=== PATIENT | female | born 1985 | race Caucasian/White ===

== ENCOUNTER 2021-06-28 23:05 | Emergency (ER) | payer OTHER ==
[2021-06-28] MEDS ORDERED: Acetaminophen/HYDROcodone 325-5 MG Tab ONE (23:09)
[2021-06-29] MEDS: Sodium Chloride 0.9% 10 ML Syringe FLUSH PRN ×7 (00:10→00:57)
[2021-06-29] MEDS: Midazolam 1 MG/ML 2 ML SDV IVPUSH ONE ×2 (00:32→00:36)
[2021-06-29] MEDS: fentaNYL 100 MCG/2 ML SDV IVPUSH PRN ×2 (00:34→00:39)
[2021-06-29] MEDS ORDERED: Lidocaine 2% Jelly 10 ML Urojet MUCMEM ONE (01:47)
[2021-06-29] MEDS ORDERED: Ketorolac 60 MG/2 ML SDV IVPUSH ONE (01:47)
[2021-06-29] MEDS ORDERED: Midazolam 1 MG/ML 2 ML SDV IVPUSH ONE (02:31)
--- NOTE | 2021-06-29 12:53 | EDM.PDOC ---
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 She could not remove a tampon that was inserted today. She developed pain and swelling in the area. She tried to urinate but felt something "come out". She is concerned about a prolapsed vagina. At this point she rates her pain at severe. Vaginal Pain Score (Numeric/FACES): 4 - Related Data Allergies Allergy/AdvReac Type Severity Reaction Status Date / Time clindamycin Allergy Anaphylactic Verified 06/29/21 00:03 Shock diclofenac [From Voltaren] Allergy Other Verified 06/29/21 00:03 Home Meds: Home Meds FLUoxetine [PROzac] 80 mg PO DAILY 06/29/21 [History] Past Medical History - Past Health History Medical/Surgical History: Denies Medical/Surgical History Social & Family History - Family History Family Medical History: No Pertinent Family History - Tobacco Use Tobacco Use Status *Q: Never Tobacco User - Caffeine Use Caffeine Use: Reports: None - Recreational Drug Use Recreational Drug Use: No ED ROS GENERAL - Review of Systems Review Of Systems: Comprehensive ROS is negative, except as noted in HPI. : Reports: Other (vaginal pain and swelling.) ED EXAM, GENERAL - Physical Exam Exam: See Below General Appearance: Mild Distress, Other (lying on her left side in a position.) (Female) Exam: Other (vaginal opening is red with swelling noted. No bleeding. Digital exam reveals a possible tampon close to the cervix, and appears to be lying crossways. Pt is in alot of pain and did not tolerated using a speculum.) Course - Vital Signs Last Recorded V/S: Last Vital Signs Temp 99.0 F 06/28/21 23:08 Pulse 75 06/29/21 02:01 Resp 20 06/29/21 02:01 BP 111/65 06/29/21 02:01 Pulse Ox 98 06/29/21 02:01 - Orders/Labs/Meds Meds: Medications Discontinued Medications Generic Name Dose Route Start Last Admin Trade Name Freq PRN Reason Stop Dose Admin Hydrocodone Bitart/Acetaminophen 10 tab 06/28/21 23:09 Acetaminophen/Hydrocodone 325-5 Mg Tab .ROUTE 06/28/21 23:10 .STK-MED ONE Fentanyl 50 mcg 06/29/21 00:12 06/29/21 00:39 Fentanyl 100 Mcg/2 Ml Sdv IVPUSH 50 mcg Q5M PRN Administration Pain Ketorolac Tromethamine 15 mg 06/29/21 01:47 06/29/21 00:57 Ketorolac 60 Mg/2 Ml Sdv IVPUSH 06/29/21 01:48 15 mg ONETIME ONE Administration Lidocaine HCl 10 ml 06/29/21 01:47 06/28/21 23:35 Lidocaine 2% Jelly 10 Ml Urojet MUCMEM 06/29/21 01:48 10 ml ONETIME ONE Administration Midazolam HCl 2 mg 06/29/21 00:11 06/29/21 00:36 Midazolam 1 Mg/Ml 2 Ml Sdv IVPUSH 06/29/21 00:12 2 mg ONETIME ONE Administration Midazolam HCl 1 mg 06/29/21 02:31 06/29/21 00:44 Midazolam 1 Mg/Ml 2 Ml Sdv IVPUSH 06/29/21 02:32 1 mg ONETIME ONE Administration Sodium Chloride 10 ml 06/29/21 01:48 06/29/21 00:57 Sodium Chloride 0.9% 10 Ml Syringe FLUSH 10 ml ASDIRECTED PRN Administration IV Use - Re-Assessments/Exams Free Text/Narrative Re-Assessment/Exam: 06/29/21 12:53 Lidocaine Jelly was inserted into the vagina, but it did not help to reduce her pain. I then called [facility] in [place] who suggested conscious sedation. We gave her Versed and Fentanyl, which made her drowsy. I was then able to insert the speculum, visualize the tampon, and remove it with a ring forceps. The pt tolerated this with mild discomfort. There was no bleeding during the procedure. She will be sent home after the proper monitoring time. [place] will be sent with her to take prn. Toradol was given IV. She is to call the [facility] for a follow up appt. She has no further questions. Departure - Departure Time of Disposition: 02:15 Disposition: Home, Self-Care 01 Clinical Impression: Retained tampon Qualifiers: Encounter type: initial encounter Qualified Code(s): T19.2XXA - Foreign body in vulva and vagina, initial encounter - Discharge Information *PRESCRIPTION DRUG MONITORING PROGRAM REVIEWED*: No *COPY OF PRESCRIPTION DRUG MONITORING REPORT IN PATIENT MARISABEL: No Instructions: Vaginal Foreign Body, [id number] Referrals: PCP,None [Primary Care Provider] - Forms: ED Department Discharge Additional Instructions: Discharge home. Hydrocodone/APAP 5/325 1 tablet by mouth every 6 hours as needed for pain. Follow up with your PHARMACY AFFAIRS ASSISTANT as soon as possible. Call or return to the ER if you have concerns. Sepsis Event Note (ED) - Evaluation Sepsis Screening Result: No Definite Risk - Focused Exam Vital Signs: Vital Signs Pulse Resp BP Pulse Ox 06/29/21 02:01 75 20 111/65 98 06/29/21 01:45 73 21 H 102/61 97 06/29/21 01:00 75 21 H 122/74 98 06/29/21 00:51 81 19 128/62 99
== END 2021-06-29 02:05 | disposition home or self-care (01) ==
LOC: LB.ED 23:05
DX: T19.2XXA Foreign body in vulva and vagina, initial encounter (principal); Z88.1 Allergy status to other antibiotic agents; Z88.8 Allergy status to other drugs, medicaments and biological substances
CPT/HCPCS: 96374; 96375; 99283; A9270; J1885; J2250; J3010

== ENCOUNTER 2021-06-29 16:53 | Emergency (ER) | payer OTHER ==
[2021-06-29] MEDS ORDERED: HYDROmorphone 2 MG/ML SDV IM ONE (17:09)
[2021-06-29] MEDS ORDERED: Ketorolac 60 MG/2 ML SDV IM ONE (17:10)
[2021-06-29] MEDS ORDERED: HYDROmorphone 2 MG/ML SDV ONE (17:25)
[2021-06-29] MEDS ORDERED: Ketorolac 60 MG/2 ML SDV ONE (17:25)
[2021-06-29] MEDS ORDERED: Ketorolac 10 MG Tab ONE ×2 (18:07→18:20)
[2021-06-29] MEDS ORDERED: Acetaminophen/oxyCODONE 325-5 MG Tab ONE (18:20)
--- NOTE | 2021-06-29 19:06 | EDM.PDOC ---
ED HPI GENERAL MEDICAL PROBLEM - General Chief Complaint: [facility]ERS Problem Stated Complaint: VAGINAL PROLAPSE Time Seen by Provider: 06/29/21 17:10 - History of Present Illness INITIAL COMMENTS - FREE TEXT/NARRATIVE: Pt returns to the ER with C/O ongoing pelvic pain and fullness. She feels there is something wrong. I saw her last evening and removed a retained Tampon that required sedation. She was given [place] tabs, telling me they don't help alot for her pain. I did consult with [facility] last evening, and they want her to be seen for a re check, further evaluation. She tells me she can't sit for long due to pain, but can lay on her side. She thinks she may have a fever. Vaginal Pain Score (Numeric/FACES): 4 - Related Data Allergies Allergy/AdvReac Type Severity Reaction Status Date / Time clindamycin Allergy Anaphylactic Verified 06/29/21 00:03 Shock diclofenac [From Voltaren] Allergy Other Verified 06/29/21 00:03 Home Meds: Home Meds FLUoxetine [PROzac] 80 mg PO DAILY 06/29/21 [History] Past Medical History - Past Health History Medical/Surgical History: Denies Medical/Surgical History MATERIAL MOVERS History: Reports: , Other (See Below) Other MATERIAL MOVERS History: ovarian cysts, overy removed. problems with vaginal bleeding. Social & Family History - Family History Family Medical History: No Pertinent Family History - Caffeine Use Caffeine Use: Reports: None - Recreational Drug Use Recreational Drug Use: No ED ROS GENERAL - Review of Systems Review Of Systems: Comprehensive ROS is negative, except as noted in HPI. : Reports: Other (Pelvic pain and fullness.) ED EXAM, GENERAL - Physical Exam Exam: See Below Free Text/Narrative:: Pt is lying on her side. No respiratory distress. V.S. reveal a low grade temp. Abd is soft and tender in the bladder area. Further exam deferred. Course - Vital Signs Last Recorded V/S: Last Vital Signs Temp 99.2 F 06/29/21 17:31 Pulse 84 06/29/21 17:56 Resp 18 06/29/21 17:56 BP 135/82 06/29/21 17:03 Pulse Ox 96 06/29/21 17:56 - Orders/Labs/Meds Orders: Active Orders 24 hr Category Date Time Status Abdomen Pelvis wo Cont [CT] Stat Exams 06/29/21 17:13 Taken Labs: Laboratory Tests 06/29/21 06/29/21 Range/Units 17:13 17:13 WBC 5.3 (4.0-11.0) K/uL RBC 4.23 (3.80-5.80) M/uL Hgb 12.8 (11.5-16.5) g/dL Hct 37.7 (37.0-47.0) % MCV 89 (76-96) fL MCH 30.3 (27.0-32.0) pg MCHC 34.0 (31.0-35.0) g/dL RDW 12.2 (11.0-16.0) % Plt Count 255 (150-500) K/uL MPV 9.5 (6.0-10.0) fL Neut % (Auto) 47.0 (45.0-70.0) % Lymph % (Auto) 42.3 H (20.0-40.0) % Hand % (Auto) 6.0 (3.0-10.0) % Eos % (Auto) 4.5 (1.0-5.0) % Baso % (Auto) 0.2 (0.0-0.5) % Neut # (Auto) 2.48 (2.00-7.50) K/uL Lymph # (Auto) 2.24 (1.50-4.00) K/uL Hand # (Auto) 0.32 (0.20-0.80) K/uL Eos # (Auto) 0.24 (0.04-0.40) K/uL Baso # (Auto) 0.01 L (0.02-0.10) K/uL Sodium 141 (136-145) mmol/L Potassium 3.9 (3.5-5.1) mmol/L Chloride 107 (98-107) mmol/L Carbon Dioxide 24.3 (21.0-32.0) mmol/L Anion Gap 13.6 (5.0-15.0) mmol/L BUN 16 (8-26) mg/dL Creatinine 0.82 (0.55-1.02) mg/dL Est Cr Clr Drug Dosing TNP Estimated GFR (MDRD) > 60 (>60) MLS/MIN BUN/Creatinine Ratio 19.5 (6-25) Glucose 86 (74-100) mg/dL Calcium 8.3 L (8.5-10.1) mg/dL Total Bilirubin 0.5 (0.0-1.0) mg/dL AST 18 (15-37) U/L ALT 29 (12-78) U/L Alkaline Phosphatase 54 (46-116) U/L Total Protein 7.1 (6.4-8.2) g/dL Albumin 3.7 (3.4-5.0) g/dL Globulin 3.4 (2.2-4.2) g/dL Albumin/Globulin Ratio 1.1 (0.8-2.0) Meds: Medications Discontinued Medications Generic Name Dose Route Start Last Admin Trade Name Paulina PRN Reason Stop Dose Admin Hydromorphone HCl 2 mg 06/29/21 17:09 06/29/21 17:22 Hydromorphone 2 Mg/Ml Sdv IM 06/29/21 17:10 2 mg ONETIME ONE Administration Hydromorphone HCl Confirm 06/29/21 17:25 06/29/21 17:18 Hydromorphone 2 Mg/Ml Sdv Administered 06/29/21 17:26 Not Given Dose 2 mg .ROUTE .STK-MED ONE Ketorolac Tromethamine 60 mg 06/29/21 17:10 06/29/21 17:22 Ketorolac 60 Mg/2 Ml Sdv IM 06/29/21 17:11 60 mg ONETIME ONE Administration Ketorolac Tromethamine Confirm 06/29/21 17:25 06/29/21 17:18 Ketorolac 60 Mg/2 Ml Sdv Administered 06/29/21 17:26 Not Given Dose 60 mg .ROUTE .STK-MED ONE Ketorolac Tromethamine Confirm 06/29/21 18:07 Ketorolac 10 Mg Tab Administered 06/29/21 18:08 Dose 20 mg .ROUTE .STK-MED ONE - Re-Assessments/Exams Free Text/Narrative Re-Assessment/Exam: 06/29/21 19:[address] are nml. She does not have an infection. Dilaudid and Toradol were given IM. This brought her pain to a 4. I will give her Percocet tabs to go home with. She needs to go back to [place], which is her home tonite. If her pain is under control she can call the [facility] in the morning. If her pain is not well controlled she needs to go to the ER when she gets back to [place]. Her boy friend will drive her. Departure - Departure Time of Disposition: 18:30 Disposition: Home, Self-Care 01 Condition: Good Clinical Impression: Pelvic pain - Discharge Information *PRESCRIPTION DRUG MONITORING PROGRAM REVIEWED*: No *COPY OF PRESCRIPTION DRUG MONITORING REPORT IN PATIENT MARISABEL: No Instructions: Pelvic Organ Prolapse Referrals: PCP,None [Primary Care Provider] - Forms: ED Department Discharge Care Plan Goals: Take Percocet and Toradol as directed for pain. f/u with [facility] as soon as possible. will call with CT results. Sepsis Event Note (ED) - Evaluation Sepsis Screening Result: No Definite Risk - Focused Exam Vital Signs: Vital Signs Temp Temp Pulse Resp BP Pulse Ox 06/29/21 17:56 84 18 96 06/29/21 17:47 74 18 94 L 06/29/21 17:31 99.2 F 80 18 96 06/29/21 17:03 97.6 F 87 18 135/82 97 - My Orders Last 24 Hours: My Active Orders 06/29/21 17:13 Abdomen Pelvis wo Cont [CT] Stat - Assessment/Plan Last 24 Hours: My Active Orders 06/29/21 17:13 Abdomen Pelvis wo Cont [CT] Stat
--- NOTE | 2021-06-30 09:42 | CT ---
Date of Service: 06/29/21 Clinical Data: Vaginal / pelvic pain. UNENHANCED ABDOMEN AND PELVIC CT: Multislice axial acquisition without IV or oral contrast was performed. No priors. The lung bases are clear. The heart size is normal. The unenhanced liver appears normal. No focal hepatic lesions. The patient is status post cholecystectomy. There are multiple calcifications within the spleen consistent with prior granulomatous disease. The spleen otherwise appears normal. The pancreas appears normal. The right and left adrenals appear normal. The right and left kidneys appear normal. No nephrocalcinosis or nephrolithiasis. No hydronephrosis or hydroureter. The bladder is partially fluid filled. It appears normal. There is an IUD noted within the uterus. The appendix is not dilated. No evidence of appendicitis. There is a moderate amount of stool noted within the cecum, ascending colon, and transverse colon. There is diverticulosis of the transverse, descending, and sigmoid colon. No evidence of diverticulitis. No free air. No free fluid. No dilated loops of bowel. No adenopathy. No aortic aneurysm. There is a fat-containing umbilical hernia. No other significant findings. [id number] [facility]
== END 2021-06-29 18:35 | disposition home or self-care (01) ==
LOC: LB.ED 16:53
DX: R10.2 Pelvic and perineal pain (principal); Z88.1 Allergy status to other antibiotic agents; Z88.8 Allergy status to other drugs, medicaments and biological substances
CPT/HCPCS: 36415; 74176; 80053; 85025; 96372; 99284; A9270; J1170; J1885

== ENCOUNTER 2021-11-06 10:45 | Emergency (ER) | payer BC ==
[~2021-11-06 10:45] MED LIST: Acetaminophen/HYDROcodone 325-5 MG Tab ONE; Budesonide 0.5 MG/2 ML Neb Susp ONE
[2021-11-06] MEDS: methylPREDNISolone Sodium Succinate 125 MG/2 ML SDV IM ONE (10:50)
[2021-11-06 11:09] VITALS: BP 149/91; PULSE 69
[2021-11-06] MEDS: Budesonide 0.5 MG/2 ML Neb Susp NEB ONE (15:17)
[2021-11-06] MEDS: Budesonide 0.5 MG/2 ML Neb Susp ONE (15:26)
== END 2021-11-06 10:56 | disposition home or self-care (01) ==
LOC: LB.ED 10:45 → UNDOADMIN 16:35 → LB.MS 16:35
DX: K20.0 Eosinophilic esophagitis (principal)
CPT/HCPCS: A9270-GY; J2930

== ENCOUNTER 2021-12-23 05:48 | Emergency (ER) | payer BC ==
[2021-12-23] MEDS ORDERED: Sodium Chloride 0.9% 10 ML Syringe FLUSH PRN (06:13)
[2021-12-23] MEDS: Sodium Chloride 0.9% 1,000 ML IV ONE (06:39)
[2021-12-23] MEDS: diphenhydrAMINE 50 MG/ML SDV IVPUSH ONE (06:42)
[2021-12-23] MEDS: Ibuprofen 600 MG Tab PO ONE (06:43)
[2021-12-23] MEDS: Metoclopramide 10 MG/2 ML SDV IV ONE (06:46)
[2021-12-23] MEDS: Ibuprofen 600 MG Tab ONE (06:48)
[2021-12-23] MEDS: Metoclopramide 10 MG/2 ML SDV ONE (06:48)
[2021-12-23] MEDS: Acetaminophen 500 MG Tab PO ONE (06:52)
[2021-12-23] MEDS: diphenhydrAMINE 50 MG/ML SDV ONE (06:52)
[2021-12-23] MEDS: Dexamethasone 4 MG/ML 5 ML MDV IVPUSH ONE (07:30)
[2021-12-23] MEDS: Dexamethasone 4 MG/ML SDV ONE (07:32)
[2021-12-23] MEDS: Divalproex Sodium Delayed-Release 500 MG Tab.CR PO ONE (07:38)
[2021-12-23] MEDS: Ketorolac 30 MG/ML SDV IVPUSH ONE (07:50)
[2021-12-23] MEDS: Ketorolac 30 MG/ML SDV ONE (07:55)
[2021-12-23] MEDS: Ketamine 200 MG/20 ML MDV IVPUSH ONE (08:37)
[2021-12-23] MEDS: Ketamine 200 MG/20 ML MDV ONE (08:42)
[2021-12-23] MEDS: HYDROmorphone 2 MG/ML SDV IVPUSH ONE (09:32)
[2021-12-23] MEDS: HYDROmorphone 2 MG/ML Syringe ONE (09:46)
[2021-12-23] MEDS ORDERED: HYDROmorphone 2 MG/ML SDV IVPUSH ONE (10:08)
[2021-12-23 10:30] VITALS: BP 109/59; PULSE 78
== END 2021-12-23 10:32 | disposition home or self-care (01) ==
LOC: LB.ED 05:48
DX: G43.909 Migraine, unspecified, not intractable, without status migrainosus (principal); Z90.49 Acquired absence of other specified parts of digestive tract; Z79.899 Other long term (current) drug therapy; Z88.1 Allergy status to other antibiotic agents; Z91.030 Bee allergy status; Z88.6 Allergy status to analgesic agent
CPT/HCPCS: 36415; 80048; 85025; 96374; 96375; 99283-25; A9270-GY; J1100; J1170; J1200; J1885; J2765; J7030

== ENCOUNTER 2022-01-16 18:51 | Emergency (ER) | payer BC ==
[2022-01-16 19:00] VITALS: BP 157/80; PULSE 75
[2022-01-16] MEDS: HYDROmorphone 2 MG/ML SDV IVPUSH ONE (19:10)
[2022-01-16] MEDS: Sodium Chloride 0.9% 1,000 ML IV ONE (19:11)
[2022-01-16] MEDS: Metoclopramide 10 MG/2 ML SDV IV ONE (19:14)
[2022-01-16] MEDS: Ketorolac 30 MG/ML SDV IVPUSH ONE (19:40)
[2022-01-16] MEDS: Ketorolac 30 MG/ML SDV ONE (19:40)
[2022-01-16] MEDS ORDERED: Acetaminophen/HYDROcodone 325-5 MG Tab ONE (20:00)
== END 2022-01-16 20:50 | disposition home or self-care (01) ==
LOC: LB.ED 18:51
DX: G43.909 Migraine, unspecified, not intractable, without status migrainosus (principal); Z91.030 Bee allergy status; Z88.1 Allergy status to other antibiotic agents; Z88.8 Allergy status to other drugs, medicaments and biological substances
CPT/HCPCS: 96361; 96374; 96375; 99282; 99283-25; A9270-GY; J1170; J1885; J2765; J7030

== ENCOUNTER 2022-02-21 17:10 | Emergency (ER) | payer BC ==
[2022-02-21 17:54] LABS: ESTIMATED GFR 87 mL/min (>60)
[2022-02-21] MEDS ORDERED: Dexamethasone 4 MG Tab PO ONE (18:23)
== END 2022-02-21 18:12 | disposition home or self-care (01) ==
LOC: LB.ED 17:10
DX: K12.2 Cellulitis and abscess of mouth (principal); Z91.030 Bee allergy status; Z88.1 Allergy status to other antibiotic agents; Z88.8 Allergy status to other drugs, medicaments and biological substances; Z79.899 Other long term (current) drug therapy
CPT/HCPCS: 36415; 80048; 85025; 99283; J8540; 99281

== ENCOUNTER 2022-03-24 18:56 | Emergency (ER) | payer BC ==
[2022-03-24] MEDS: HYDROmorphone 2 MG/ML SDV IM ONE ×2 (19:30→20:28)
[2022-03-24] MEDS: HYDROmorphone 2 MG/ML Syringe ONE ×2 (19:32→20:44)
[2022-03-24] MEDS ORDERED: Acetaminophen/HYDROcodone 325-5 MG Tab ONE (20:00)
[2022-03-24 20:05] LABS: ESTIMATED GFR 71 mL/min (>60)
[2022-03-24 20:09] LABS: UROTHELIAL CELLS,URINE NOT SEEN /HPF
== END 2022-03-24 20:42 | disposition home or self-care (01) ==
LOC: LB.ED 18:56
DX: N83.202 Unspecified ovarian cyst, left side (principal); Z91.030 Bee allergy status; Z88.1 Allergy status to other antibiotic agents; Z88.8 Allergy status to other drugs, medicaments and biological substances; Z79.899 Other long term (current) drug therapy; Z90.49 Acquired absence of other specified parts of digestive tract
CPT/HCPCS: 36415; 74176; 80053; 81001; 81025; 83690; 85025; 96372; 99282; 99284; A9270-GY; J1170

== ENCOUNTER 2022-03-26 16:45 | Emergency (ER) | payer BC ==
[2022-03-26] MEDS: Sodium Chloride 0.9% 1,000 ML IV SCH (16:55)
[2022-03-26] MEDS: HYDROmorphone 2 MG/ML Syringe IVPUSH ONE ×2 (17:00→17:15)
[2022-03-26] MEDS: Ondansetron 4 MG/2 ML SDV IVPUSH ONE (17:05)
[2022-03-26] MEDS: hydrOXYzine HCl 25 MG Tab PO ONE (17:19)
[2022-03-26] MEDS: HYDROmorphone 2 MG/ML SDV IVPUSH ONE (17:37)
== END 2022-03-26 18:17 | disposition home or self-care (01) ==
LOC: LB.ED 16:45
DX: N83.202 Unspecified ovarian cyst, left side (principal); Z91.030 Bee allergy status; Z88.1 Allergy status to other antibiotic agents; Z88.8 Allergy status to other drugs, medicaments and biological substances
CPT/HCPCS: 96374; 96375; 96376; 99282; 99283-25; A9270-GY; J1170; J2405; J7030

== ENCOUNTER 2022-03-27 21:35 | Emergency (ER) | payer BC ==
[2022-03-27] MEDS: Ondansetron 4 MG/2 ML SDV IVPUSH ONE (21:55)
[2022-03-27] MEDS: HYDROmorphone 2 MG/ML Syringe IVPUSH ONE ×2 (21:57→22:13)
[2022-03-27] MEDS: Sodium Chloride 0.9% 1,000 ML IV ONE (22:00)
[2022-03-27] MEDS: hydrOXYzine HCl 25 MG Tab PO ONE (22:10)
[2022-03-27] MEDS: Ketorolac 30 MG/ML SDV IVPUSH ONE (22:16)
[2022-03-27] MEDS: Ketorolac 30 MG/ML SDV ONE (22:17)
[2022-03-27] MEDS: HYDROmorphone 2 MG/ML Syringe ONE (22:18)
[2022-03-27 22:24] LABS: ESTIMATED GFR 110 mL/min (>60)
== END 2022-03-27 23:14 ==
LOC: LB.ED 21:35
DX: N83.202 Unspecified ovarian cyst, left side (principal); Z91.030 Bee allergy status; Z88.1 Allergy status to other antibiotic agents; Z88.8 Allergy status to other drugs, medicaments and biological substances
CPT/HCPCS: 36415; 80053; 83735; 85025; 96361; 96374; 96375; 99283; 99284-25; A0425; A0429; A9270-GY; J1170; J1885; J2405; J7030

== ENCOUNTER 2022-04-09 20:09 | Emergency (ER) | payer BC ==
[2022-04-09] MEDS ORDERED: Acetaminophen/oxyCODONE 325-5 MG Tab ONE (20:25)
== END 2022-04-09 20:30 | disposition home or self-care (01) ==
LOC: LB.ED 20:09
DX: R10.2 Pelvic and perineal pain (principal); Z91.030 Bee allergy status; Z88.1 Allergy status to other antibiotic agents; Z88.8 Allergy status to other drugs, medicaments and biological substances; Z79.899 Other long term (current) drug therapy
CPT/HCPCS: 99283; A9270